=== PATIENT | female | born 1965 | race Caucasian/White ===

== ENCOUNTER 2022-05-27 08:13 | Emergency (ER) | payer OTHER ==
[~2022-05-27] VITALS: Ht 175.3 cm; Wt 79.4 kg
[2022-05-27] MEDS ORDERED: CYCL10 PO (10:50)
[2022-05-27] MEDS ORDERED: IBUP400 PO (10:50)
== END 2022-05-27 10:55 | disposition home or self-care (01) ==
LOC: ER 08:13
DX: M54.2 Cervicalgia (principal); L30.9 Dermatitis, unspecified; F17.200 Nicotine dependence, unspecified, uncomplicated; Z88.5 Allergy status to narcotic agent; Z88.8 Allergy status to other drugs, medicaments and biological substances
CPT/HCPCS: J1885